=== PATIENT | female | born 1995 | race Two or more races ===

== ENCOUNTER 2019-06-26 23:20 | Emergency (ER) | payer SELFPAY ==
--- NOTE | 2019-06-27 00:51 | CR ---
Indication: Chest pain. Anxiety Technique: Chest 1 view Comparison: None Findings/Impression: Cardiovascular and mediastinum: Heart size and vasculature are normal in caliber and appearance. Mediastinum is within normal limits. Lungs and pleural space: An expiratory study. The medial apices are obscured by the patient`s chin. No consolidation or pleural effusions. No definite pneumothorax seen. Bones and soft tissues: No significant findings. Dictated by Max Staley MD @ 06/27/2019 12:50:34 AM Dictated by: Max Staley MD @ 06/27/2019 00:50:40 (Electronically Signed)
[2019-06-27 01:12] LABS: BLOOD UREA NITROGEN,BUN 10 mg/dL (7.0-18.0); CHLORIDE,CL 103 mmol/L (98-107); GLUCOSE RANDOM 139 mg/dL (74-106); POTASSIUM,K 3.7 mmol/L (3.5-5.1); SODIUM,NA 139 mmol/L (136-145)
[2019-06-27] MEDS ORDERED: Ketorolac 60 MG/2 ML SDV IM ONE (01:43)
--- NOTE | 2019-06-27 02:02 | CT ---
INDICATION: Abdominal and back pain. CT ABDOMEN AND PELVIS WITHOUT CONTRAST TECHNIQUE: Multidetector CT imaging was performed through the abdomen and pelvis without intravenous contrast administration. Coronal and sagittal reconstructions were generated. COMPARISON: None. FINDINGS: Lower chest: Lung bases are clear. Liver: Diffuse fatty infiltration of the liver. Gallbladder and bile ducts: No gallbladder wall thickening or calcified gallstones. No biliary dilation identified. Pancreas: Unremarkable. Spleen: Normal. Adrenals: No nodules or masses. Kidneys, ureters, and urinary bladder: Tiny nonobstructing stone in the lower pole of the left kidney. No ureteral stones or hydronephrosis. No bladder mass or definite wall thickening. Gastrointestinal tract: Normal caliber bowel without wall thickening. The appendix is normal. Vascular structures: Normal for age. Peritoneum: No free air, abscess, or significant free fluid. Lymph nodes: No pathologically enlarged nodes identified. Reproductive organs: No pelvic masses. Bones: Normal for age. IMPRESSION: 1. No acute abnormality identified. No cause for the patient`s symptoms is demonstrated. 2. Tiny nonobstructing left intrarenal stone. 3. Fatty infiltration of the liver. GIRMA ABBOTT MD [facility] [employer] Dictated by Keny Abbott MD @ 06/27/2019 2:00:57 AM Dictated by: Keny Abbott MD @ 06/27/2019 02:01:41 (Electronically Signed)
--- NOTE | 2019-06-27 02:19 | EDM.PDOC ---
ED HPI GENERAL MEDICAL PROBLEM - General Chief Complaint: Back Pain or Injury Stated Complaint: BACK PAIN Time Seen by Provider: 06/26/19 23:52 Source of Information: Reports: Patient History Limitations: Reports: No Limitations - History of Present Illness INITIAL COMMENTS - FREE TEXT/NARRATIVE: 23-year-old female's been having upper and lower back pain for the past 2 months. Patient states is got worse and she decided to come the emergency room Onset: Today Duration: Chronic, Getting Worse Location: Reports: Back Quality: Reports: Ache Severity: Moderate Improves with: Reports: None Worsens with: Reports: Breathing, Movement Associated Symptoms: Reports: No Other Symptoms back Pain Score (Numeric/FACES): 10 - Related Data Allergies Allergy/AdvReac Type Severity Reaction Status Date / Time No Known Allergies Allergy Verified 06/26/19 23:49 Home Meds: Home Meds Control 06/26/19 [History] Cyclobenzaprine [Flexeril] 10 mg PO BEDTIME #20 tab 06/27/19 [Rx] Past Medical History - Past Health History Medical/Surgical History: Denies Medical/Surgical History Musculoskeletal History: Reports: None - Past Surgical History Other Musculoskeletal Surgeries/Procedures:: left leg, tendon repair Social & Family History - Family History Family Medical History: Noncontributory - Tobacco Use Smoking Status *Q: Never Smoker Second Hand Smoke Exposure: No - Caffeine Use Caffeine Use: Reports: None - Recreational Drug Use Recreational Drug Use: No ED ROS GENERAL - Review of Systems Review Of Systems: See Below Constitutional: Reports: No Symptoms, Fever HEENT: Reports: No Symptoms Respiratory: Reports: No Symptoms Cardiovascular: Reports: No Symptoms Endocrine: Reports: No Symptoms GI/Abdominal: Reports: No Symptoms : Reports: No Symptoms Musculoskeletal: Reports: No Symptoms Skin: Reports: No Symptoms Neurological: Reports: No Symptoms Psychiatric: Reports: No Symptoms Hematologic/Lymphatic: Reports: No Symptoms Immunologic: Reports: No Symptoms ED EXAM,LOWER BACK PAIN/INJURY - Physical Exam Exam: See Below Exam Limited By: No Limitations General Appearance: Alert, WD/WN, No Apparent Distress Eye Exam: Bilateral Eye: Normal Fundi, Normal Inspection Ears: Normal External Exam, Normal Canal, Hearing Grossly Normal, Normal TMs Nose: Normal Inspection, Normal Mucosa, No Blood Throat/Mouth: Normal Inspection, Normal Lips, Normal Teeth, Normal Gums, Normal Oropharynx, Normal Voice, No Airway Compromise Head: Atraumatic, Normocephalic Neck: Normal Inspection, Supple, Non-Tender, Full Range of Motion Respiratory/Chest: No Respiratory Distress, Lungs Clear, Normal Breath Sounds, No Accessory Muscle Use, Chest Non-Tender Cardiovascular: Normal Peripheral Pulses, Regular Rate, Rhythm, No Edema, No Gallop, No JVD, No Murmur, No Rub GI/Abdominal: Normal Bowel Sounds, Soft, Non-Tender, No Organomegaly, No Distention, No Abnormal Bruit, No Mass (Female) Exam: Normal External Exam, Normal Speculum Exam, Normal Bimanual Exam Back Exam: Normal Inspection, Full Range of Motion, Muscle Spasm Extremities: Normal Inspection, Normal Range of Motion, Non-Tender, No Pedal Edema, Normal Capillary Refill Neurological: Alert, Normal Mood/Affect, Normal Dorsiflexion, CN II-XII Intact, Normal Plantar Flexion, Normal Gait, Normal Reflexes, No Motor/Sensory Deficits , Oriented x 3 Course - Vital Signs Text/Narrative:: The patien has been found to have a negative CT scan negative for kidney stones. Patient has just started her menstrual cycle therefore there are blood in urine. Patient will be discharged with muscle relaxers diagnosis of muscular spasms. Last Recorded V/S: Last Vital Signs Temp 96.6 F L 06/26/19 23:38 Pulse 84 06/26/19 23:38 Resp 17 06/26/19 23:38 BP 138/81 06/26/19 23:38 Pulse Ox 99 06/26/19 23:38 - Orders/Labs/Meds Labs: Laboratory Tests 06/26/19 06/26/19 06/27/19 Range/Units 23:41 23:41 00:30 WBC 8.28 (4.0-11.0) K/uL RBC 4.39 (4.30-5.90) M/uL Hgb 13.7 (12.0-16.0) g/dL Hct 39.5 (36.0-46.0) % MCV 90.0 (80.0-98.0) fL MCH 31.2 (27.0-32.0) pg MCHC 34.7 (31.0-37.0) g/dL RDW Std Deviation 42.0 (28.0-62.0) fl RDW Coeff of Merari 13 (11.0-15.0) % Plt Count 294 (150-400) K/uL MPV 8.70 (7.40-12.00) fL Neut % (Auto) 63.3 (48.0-80.0) % Lymph % (Auto) 30.6 (16.0-40.0) % [place] % (Auto) 5.7 (0.0-15.0) % Eos % (Auto) 0.2 (0.0-7.0) % Baso % (Auto) 0.2 (0.0-1.5) % Neut # (Auto) 5.2 (1.4-5.7) K/uL Lymph # (Auto) 2.5 H (0.6-2.4) K/uL [place] # (Auto) 0.5 (0.0-0.8) K/uL Eos # (Auto) 0.0 (0.0-0.7) K/uL Baso # (Auto) 0.0 (0.0-0.1) K/uL Sodium (136-145) mmol/L Potassium (3.5-5.1) mmol/L Chloride (98-107) mmol/L Carbon Dioxide (21.0-32.0) mmol/L BUN (7.0-18.0) mg/dL Creatinine (0.6-1.0) mg/dL Est Cr Clr Drug Dosing mL/min Estimated GFR (MDRD) ml/min Glucose (74-106) mg/dL Calcium (8.5-10.1) mg/dL Total Bilirubin (0.2-1.0) mg/dL AST (15-37) IU/L ALT (14-63) IU/L Alkaline Phosphatase (46-116) U/L Total Protein (6.4-8.2) g/dL Albumin (3.4-5.0) g/dL Globulin (2.6-4.0) g/dL Albumin/Globulin Ratio (0.9-1.6) Urine Color YELLOW Urine Appearance SLT CLOUDY Urine pH 5.5 (5.0-8.0) Ur Specific [place] >= 1.030 (1.001-1.035) Urine Protein TRACE H (NEGATIVE) mg/dL Urine Glucose (UA) NEGATIVE (NEGATIVE) mg/dL Urine Ketones NEGATIVE (NEGATIVE) mg/dL Urine Occult Blood LARGE H (NEGATIVE) Urine Nitrite NEGATIVE (NEGATIVE) Urine Bilirubin NEGATIVE (NEGATIVE) Urine Urobilinogen 0.2 (<2.0) EU/dL Ur Leukocyte Esterase NEGATIVE (NEGATIVE) Urine RBC 1-3 (0-2/HPF) Urine WBC 0-2 (0-5/HPF) Ur Epithelial Cells MODERATE (NONE-FEW) Calcium Oxalate Crystal FEW (NEGATIVE) Urine Bacteria FEW (NEGATIVE) Urine Mucus LIGHT (NONE-MOD) Urine HCG, Qual NEGATIVE (NEGATIVE) 06/27/19 Range/Units 00:30 WBC (4.0-11.0) K/uL RBC (4.30-5.90) M/uL Hgb (12.0-16.0) g/dL Hct (36.0-46.0) % MCV (80.0-98.0) fL MCH (27.0-32.0) pg MCHC (31.0-37.0) g/dL RDW Std Deviation (28.0-62.0) fl RDW Coeff of Merari (11.0-15.0) % Plt Count (150-400) K/uL MPV (7.40-12.00) fL Neut % (Auto) (48.0-80.0) % Lymph % (Auto) (16.0-40.0) % [place] % (Auto) (0.0-15.0) % Eos % (Auto) (0.0-7.0) % Baso % (Auto) (0.0-1.5) % Neut # (Auto) (1.4-5.7) K/uL Lymph # (Auto) (0.6-2.4) K/uL [place] # (Auto) (0.0-0.8) K/uL Eos # (Auto) (0.0-0.7) K/uL Baso # (Auto) (0.0-0.1) K/uL Sodium 139 (136-145) mmol/L Potassium 3.7 (3.5-5.1) mmol/L Chloride 103 (98-107) mmol/L Carbon Dioxide 25.0 (21.0-32.0) mmol/L BUN 10 (7.0-18.0) mg/dL Creatinine 0.8 (0.6-1.0) mg/dL Est Cr Clr Drug Dosing 92.83 mL/min Estimated GFR (MDRD) > 60.0 ml/min Glucose 139 H (74-106) mg/dL Calcium 8.4 L (8.5-10.1) mg/dL Total Bilirubin 0.4 (0.2-1.0) mg/dL AST 38 H (15-37) IU/L ALT 75 H (14-63) IU/L Alkaline Phosphatase 71 (46-116) U/L Total Protein 7.8 (6.4-8.2) g/dL Albumin 3.8 (3.4-5.0) g/dL Globulin 4.0 (2.6-4.0) g/dL Albumin/Globulin Ratio 0.9 (0.9-1.6) Urine Color Urine Appearance Urine pH (5.0-8.0) Ur Specific [place] (1.001-1.035) Urine Protein (NEGATIVE) mg/dL Urine Glucose (UA) (NEGATIVE) mg/dL Urine Ketones (NEGATIVE) mg/dL Urine Occult Blood (NEGATIVE) Urine Nitrite (NEGATIVE) Urine Bilirubin (NEGATIVE) Urine Urobilinogen (<2.0) EU/dL Ur Leukocyte Esterase (NEGATIVE) Urine RBC (0-2/HPF) Urine WBC (0-5/HPF) Ur Epithelial Cells (NONE-FEW) Calcium Oxalate Crystal (NEGATIVE) Urine Bacteria (NEGATIVE) Urine Mucus (NONE-MOD) Urine HCG, Qual (NEGATIVE) Meds: Medications Discontinued Medications Generic Name Dose Route Start Last Admin Trade Name Freq PRN Reason Stop Dose Admin Ketorolac Tromethamine 60 mg 06/27/19 01:43 06/27/19 01:54 Toradol IM 06/27/19 01:44 60 mg ONETIME ONE Administration Departure - Departure Time of Disposition: 02:20 Disposition: Home, Self-Care 01 Condition: Good Clinical Impression: Muscle ache of extremity - Discharge Information Prescriptions: Cyclobenzaprine [Flexeril] 10 mg PO BEDTIME #20 tab Instructions: Myofascial Pain Syndrome and Fibromyalgia Referrals: Eloy Arroyo MD [Primary Care Provider] - Forms: ED Department Discharge Additional Instructions: Patient is to take her medication as prescribed II. return for any problems Sepsis Event Note - Evaluation Sepsis Screening Result: No Definite Risk - Focused Exam Vital Signs: Vital Signs Temp Pulse Resp BP Pulse Ox 06/26/19 23:38 96.6 F L 84 17 138/81 99 Date Exam was Performed: 06/27/19 Time Exam was Performed: 02:37
[2019-06-27 03:06] VITALS: BP 124/70; PULSE 82
== END 2019-06-27 03:07 | disposition home or self-care (01) ==
LOC: MW.ED 23:20
DX: M79.18 Myalgia, other site (principal)
CPT/HCPCS: 36415; 71045; 74176; 80053; 81001; 81025; 85025; 96372; 99284; J1885

== ENCOUNTER 2020-05-20 12:36 | Emergency (ER) | payer SELFPAY ==
[2020-05-20 13:26] VITALS: BP 136/92; PULSE 83
--- NOTE | 2020-05-20 13:45 | EDM.PDOC ---
ED HPI GENERAL MEDICAL PROBLEM - General Chief Complaint: ENT Problem Stated Complaint: BUMP ON ROOF OF MOUTH Time Seen by Provider: 05/20/20 13:15 Source of Information: Reports: Patient History Limitations: Reports: No Limitations - History of Present Illness INITIAL COMMENTS - FREE TEXT/NARRATIVE: Patient is a 24-year-old female who presents today for swelling to the roof of her mouth. Patient states that this started last week and has been growing in size. Patient was also complaining of some throat pain currently as well. Patient states she is able to breathe okay does not have any fever chills or nausea or vomiting. Patient is a 34-year-old male who presents today for possible seizure. Oral/Mouth Pain Score (Numeric/FACES): 10 - Related Data Allergies Allergy/AdvReac Type Severity Reaction Status Date / Time No Known Allergies Allergy Verified 05/20/20 13:27 Home Meds: Home Meds Diphenhyd/Lidocaine/Nystatin [First-Bxn Mouthwash] 5 ml MM BID 7 Days #237 susp.recon 05/20/20 [Rx] clindamycin HCL [Clindamycin HCl] 300 mg PO Q8HR 7 Days #21 capsule 05/20/20 [Rx] Past Medical History - Past Health History Medical/Surgical History: Denies Medical/Surgical History Musculoskeletal History: Reports: None - Infectious Disease History Infectious Disease History: Reports: Chicken Pox - Past Surgical History Other Musculoskeletal Surgeries/Procedures:: left leg, tendon repair Social & Family History - Family History Family Medical History: No Pertinent Family History - Caffeine Use Caffeine Use: Reports: None - Recreational Drug Use Recreational Drug Use: No ED ROS ENT - Review of Systems Review Of Systems: See Below Constitutional: Reports: No Symptoms HEENT: Reports: No Symptoms Respiratory: Reports: No Symptoms Endocrine: Reports: No Symptoms GI/Abdominal: Reports: No Symptoms : Reports: No Symptoms Musculoskeletal: Reports: No Symptoms Skin: Reports: No Symptoms Neurological: Reports: No Symptoms Psychiatric: Reports: No Symptoms Hematologic/Lymphatic: Reports: No Symptoms Immunologic: Reports: No Symptoms ED EXAM, ENT - Physical Exam Exam: See Below Exam Limited By: No Limitations General Appearance: Alert, WD/WN, No Apparent Distress Mouth/Throat: Throat Pain, Other (possible abscese to roof of mouth) Respiratory/Chest: No Respiratory Distress, Lungs Clear ED ENT PROCEDURES - Additional/Other Procedure(s) Other (Free Text) Procedure(s): I&D Done to the patient preferred not had a small abscess. We used patient's lidocaine as well as 1% lidocaine injection. Use 11 blade. We made a small helen in the skin good amount of pus was able to come out. Patient relief and feels better. Course - Vital Signs Last Recorded V/S: Last Vital Signs Temp 98.9 F 05/20/20 13:10 Pulse 83 05/20/20 13:10 Resp BP 136/92 H 05/20/20 13:10 Pulse Ox 98 05/20/20 13:10 - Orders/Labs/Meds Orders: Active Orders 24 hr Category Date Time Status STREP A BY PCR [MOLEC] Stat Lab 05/20/20 14:02 Ordered Labs: Laboratory Tests 05/20/20 05/20/20 05/20/20 Range/Units 14:12 14:12 14:12 WBC 11.31 H (4.0-11.0) K/uL RBC 4.77 (4.30-5.90) M/uL Hgb 14.9 (12.0-16.0) g/dL Hct 44.2 (36.0-46.0) % MCV 92.7 (80.0-98.0) fL MCH 31.2 (27.0-32.0) pg MCHC 33.7 (31.0-37.0) g/dL RDW Std Deviation 44.3 (28.0-62.0) fl RDW Coeff of Merari 13 (11.0-15.0) % Plt Count 364 (150-400) K/uL MPV 9.10 (7.40-12.00) fL Neut % (Auto) 75.5 (48.0-80.0) % Lymph % (Auto) 18.1 (16.0-40.0) % [place] % (Auto) 5.8 (0.0-15.0) % Eos % (Auto) 0.4 (0.0-7.0) % Baso % (Auto) 0.2 (0.0-1.5) % Neut # (Auto) 8.5 H (1.4-5.7) K/uL Lymph # (Auto) 2.1 (0.6-2.4) K/uL [place] # (Auto) 0.7 (0.0-0.8) K/uL Eos # (Auto) 0.0 (0.0-0.7) K/uL Baso # (Auto) 0.0 (0.0-0.1) K/uL Nucleated RBC % 0.0 /100WBC Nucleated RBCs # 0 K/uL Sodium 138 (136-145) mmol/L Potassium 3.8 (3.5-5.1) mmol/L Chloride 103 (98-107) mmol/L Carbon Dioxide 26.0 (21.0-32.0) mmol/L BUN 8 (7.0-18.0) mg/dL Creatinine 0.8 (0.6-1.0) mg/dL Est Cr Clr Drug Dosing 92.02 mL/min Estimated GFR (MDRD) > 60.0 ml/min Glucose 105 (74-106) mg/dL Calcium 8.8 (8.5-10.1) mg/dL HCG, Qual NEGATIVE (NEG) Meds: Medications Discontinued Medications Generic Name Dose Route Start Last Admin Trade Name Urbanq PRN Reason Stop Dose Admin Dexamethasone 10 mg 05/20/20 14:38 05/20/20 14:51 Dexamethasone 10 Mg/Ml Sdv IM 05/20/20 14:39 10 mg ONETIME ONE Administration Lidocaine HCl 15 ml 05/20/20 14:37 05/20/20 14:51 Lidocaine 2% Viscous Solution 15 Ml Cup PO 05/20/20 14:38 15 ml ONETIME ONE Administration Lidocaine HCl 10 ml 05/20/20 14:38 05/20/20 14:56 Lidocaine 1% 10 Ml Mdv INJECT 05/20/20 14:39 Not Given ONETIME ONE Lidocaine HCl Confirm 05/20/20 14:48 05/20/20 14:57 Lidocaine 1% 5 Ml Sdv Administered 05/20/20 14:49 Not Given Dose 5 ml .ROUTE .STK-MED ONE Lidocaine HCl 5 ml 05/20/20 14:49 05/20/20 14:51 Lidocaine 1% 5 Ml Sdv INJECT 05/20/20 14:50 5 ml ONETIME ONE Administration Departure - Departure Time of Disposition: 15:12 Disposition: Home, Self-Care 01 Condition: Good Clinical Impression: Abscess of mouth - Discharge Information *PRESCRIPTION DRUG MONITORING PROGRAM REVIEWED*: Not Applicable *COPY OF PRESCRIPTION DRUG MONITORING REPORT IN PATIENT HECTOR: Not Applicable Prescriptions: clindamycin HCL [Clindamycin HCl] 300 mg PO Q8HR 7 Days #21 capsule Diphenhyd/Lidocaine/Nystatin [First-Bxn Mouthwash] 5 ml MM BID 7 Days #237 susp.recon Instructions: Dental Abscess Referrals: Eloy Arroyo MD [Primary Care Provider] - Forms: ED Department Discharge Additional Instructions: The following information is given to patients seen in the emergency department who are being discharged to home. This information is to outline your options for follow-up care. We provide all patients seen in our emergency department with a follow-up referral. The need for follow-up, as well as the timing and circumstances, are variable depending upon the specifics of your emergency department visit. If you don't have a primary care physician on staff, we will provide you with a referral. We always advise you to contact your personal physician following an emergency department visit to inform them of the circumstance of the visit and f or follow-up with them and/or the need for any referrals to a consulting specialist. The emergency department will also refer you to a specialist when appropriate. This referral assures that you have the opportunity for follow-up care with a specialist. All of these measure are taken in an effort to provide you with optimal care, which includes your follow-up. Under all circumstances we always encourage you to contact your private physician who remains a resource for coordinating your care. When calling for follow-up care, please make the office aware that this follow-up is from your recent emergency room visit. If for any reason you are refused follow-up, please contact the [facility] Emergency Department at and asked to speak to the emergency department charge nurse. Please follow up with your primary care physician. If you do not have a primary care physician, see below: [facility] [address] [place] [id number] [facility] [address] [place] [address] Please continue to follow-up with the dentist as planned. We made a small cut and reviewed now clinically amount of pus was able come out. We also sent home with some antibiotics and some mouthwash to use to help out with the effect in the mouth. If you have any other complaints concerns please return to ED. Sepsis Event Note (ED) - Evaluation Sepsis Screening Result: No Definite Risk - Focused Exam Vital Signs: Vital Signs Temp Pulse BP Pulse Ox 05/20/20 13:10 98.9 F 83 136/92 H 98 - My Orders Last 24 Hours: My Active Orders 05/20/20 14:02 STREP A BY PCR [MOLEC] Stat - Assessment/Plan Last 24 Hours: My Active Orders 05/20/20 14:02 STREP A BY PCR [MOLEC] Stat Plan: Patient is a 24-year-old female who presents today with a bump to the roof of her mouth that is fluctuant in size that could possibly be abscess. Patient also has some tonsillar swelling exudate could have strep throat as well will test for strep throat and likely provide a small helen to the possible abscess in the patient's mouth.
[2020-05-20 14:35] LABS: BLOOD UREA NITROGEN,BUN 8 mg/dL (7.0-18.0); CHLORIDE,CL 103 mmol/L (98-107); GLUCOSE RANDOM 105 mg/dL (74-106); POTASSIUM,K 3.8 mmol/L (3.5-5.1); SODIUM,NA 138 mmol/L (136-145)
[2020-05-20] MEDS ORDERED: Lidocaine 2% Viscous Solution 15 ML Cup PO ONE (14:37)
[2020-05-20] MEDS ORDERED: Lidocaine 1% 10 ML MDV INJECT ONE (14:38)
[2020-05-20] MEDS ORDERED: Dexamethasone 10 MG/ML SDV IM ONE (14:38)
== END 2020-05-20 15:47 | disposition home or self-care (01) ==
LOC: MW.ED 12:36
DX: K12.2 Cellulitis and abscess of mouth (principal)
CPT/HCPCS: 36415; 40800; 80048; 84703; 85025; 87651; 96372; 99283; A9270; J1100

== ENCOUNTER 2020-07-30 19:59 | Emergency (ER) | payer SELFPAY ==
--- NOTE | 2020-07-30 20:12 | EDM.PDOC ---
ED HPI GENERAL MEDICAL PROBLEM - General Chief Complaint: General Stated Complaint: DIZZINESS, BLURRED VISION Time Seen by Provider: 07/30/20 20:00 Source of Information: Reports: Patient History Limitations: Reports: No Limitations - Related Data Allergies Allergy/AdvReac Type Severity Reaction Status Date / Time No Known Allergies Allergy Verified 07/30/20 20:10 Home Meds: Home Meds . [No Known Home Meds] 07/30/20 [History] Past Medical History - Past Health History Medical/Surgical History: Denies Medical/Surgical History Musculoskeletal History: Reports: None - Infectious Disease History Infectious Disease History: Reports: Chicken Pox - Past Surgical History Other Musculoskeletal Surgeries/Procedures:: left leg, tendon repair Social & Family History - Family History Family Medical History: No Pertinent Family History - Caffeine Use Caffeine Use: Reports: None Departure - Discharge Information Referrals: Fanny Peres MD [Primary Care Provider] -
[2020-07-30] MEDS ORDERED: Ketorolac 30 MG/ML SDV IVPUSH ONE (20:17)
[2020-07-30] MEDS ORDERED: Sodium Chloride 0.9% 1,000 ML IV ONE (20:17)
--- NOTE | 2020-07-30 20:30 | EDM.PDOC ---
ED HPI GENERAL MEDICAL PROBLEM - General Chief Complaint: General Stated Complaint: DIZZINESS, BLURRED VISION Time Seen by Provider: 07/30/20 20:00 Source of Information: Reports: Patient History Limitations: Reports: No Limitations - History of Present Illness INITIAL COMMENTS - FREE TEXT/NARRATIVE: HISTORY AND PHYSICAL: History of present illness: Patient is a 25-year-old female who presents to the emergency room with complaints of dizziness, headache and generally feeling unwell. She states while at work she developed a mild headache had some blurred vision and felt diz zy. She left work to go "sleep it off" at home. She was face timing her mom who recommended she come to the emergency room for evaluation and have her blood sugar checked. Does not have any chronic health problems. Denies any alcohol or drug abuse. Current complaint of mild frontal headache. Does not describe this as the worst headache of her life. Vision is intact. Patient denies any fever, chills, syncope or near syncope. Denies any chest pain, back pain, shortness of breath or cough. Denies any abdominal pain, nausea, vomiting, diarrhea, constipation or dysuria. Has not noted any blood in urine or stool. Patient has been eating and drinking appropriately. Review of systems: As per history of present illness and below otherwise all systems reviewed and negative. Past medical history: As per history of present illness and as reviewed below otherwise noncontributory. Surgical history: As per history of present illness and as reviewed below otherwise noncontributory. Social history: See social history for further information Family history: As per history of present illness and as reviewed below otherwise noncontributory. Physical exam: General: Well developed and well nourished 21-year-old female. Alert and orientated x 3. Nontoxic in appearance and in no acute distress. Vital signs are stable and have been reviewed by me. Nursing notes were reviewed. HEENT: Atraumatic, normocephalic, pupils equal and reactive bilaterally, negative for conjunctival pallor or scleral icterus, mucous membranes moist, TMs normal bilaterally, throat clear, neck supple, nontender, trachea midline. No drooling or trismus noted. No meningeal signs. No hot potato voice noted. Lungs: Clear to auscultation bilaterally. No wheezes, rales, or rhonchi. Chest nontender. Normal work of breathing, no accessory muscles used. Heart: S1S2, regular rate and rhythm without overt murmur, gallops, or rubs. No JVD. No peripheral edema Abdomen: Soft, nondistended, nontender. Normoactive bowel sounds. Negative for masses or costovertebral tenderness. Skin: Intact, warm, dry. No lesions or rashes noted. Hematologic: No petechiae or purpra. Mucosa appropriate color and normal nail bed color and refill. Extremities: Atraumatic, moves all extremities per self without difficulty or deficits, negative for cords or calf pain. Neurovascular unremarkable. Neuro: Awake, alert, oriented. Cranial nerves II through XII unremarkable. Cerebellum unremarkable. Motor and sensory unremarkable throughout. Exam nonfocal. Psychiatric: Mood and affect are appropriate. Normal thought process. Answering questions appropriately. Notes: *This patient was seen and evaluated during the 2019 SARS-CoV-2 novel coronavirus pandemic period. Community viral transmission is ongoing at time of this encounter and the emergency department is operating under pandemic response procedures. Patient is a 25-year-old female who presents to the emergency room with complaints of headache, blurred vision and dizziness. She states this lasted about 30 minutes but decided to go home to "sleep it off". Physical exam is unremarkable. Vital signs are stable. She is agreeable to basic lab work, IV fluid and Toradol. Patient states she does feel improved after the IV fluids and medication. Her lab work shows a UTI, culture has been added. I have talked with the patient about today's findings, in addition to providing specific details for plan of care. She states she did have some suprapubic pain a few days ago, felt that this had improved. She also mentions she was treated for chlamydia and tric homonas about a month ago, did follow-up and had no posttreatment issues. Reassessment at the time of disposition demonstrates that the patient is in no acute distress. The patient is stable for discharge, counseling was provided and we discussed in great detail signs and symptoms that would prompt them to return to the Emergency Department. Medication, follow up and supportive care measures were reviewed and discussed. Voices understanding and is agreeable to plan of care. Denies any further questions or concerns at this time. Diagnostics: CBC, CMP, UA, urine , orthostatic vital signs Therapeutics: IV fluid, Toradol, Macrobid Prescription: Macrobid Impression: UTI Headache, resolved Plan: 1. You were evaluated today on an emergent basis. Your labs show a bladder infection. Please take medication as directed. 2. You can alternate Tylenol and ibuprofen as needed for pain and fever management. 3. We encourage you to follow up with your primary care provider and/or kee mmended specialist in the next few days for re-evaluation and further care/management. 4. If your symptoms should worsen, new symptoms develop or any of the signs and symptoms we discussed should arise please return to the emergency room or call 911 (if needed). Definitive disposition and diagnosis as appropriate pending reevaluation and review of above. headache Pain Score (Numeric/FACES): 3 - Related Data Allergies Allergy/AdvReac Type Severity Reaction Status Date / Time No Known Allergies Allergy Verified 07/30/20 20:10 Home Meds: Home Meds Nitrofurantoin Monohyd/M-Cryst [Macrobid 100 mg Capsule] 100 mg PO BID 5 Days #10 capsule 07/30/20 [Rx] Past Medical History - Past Health History Medical/Surgical History: Denies Medical/Surgical History Musculoskeletal History: Reports: None - Infectious Disease History Infectious Disease History: Reports: Chicken Pox - Past Surgical History Other Musculoskeletal Surgeries/Procedures:: left leg, tendon repair Social & Family History - Family History Family Medical History: No Pertinent Family History - Caffeine Use Caffeine Use: Reports: None ED ROS GENERAL - Review of Systems Review Of Systems: Comprehensive ROS is negative, except as noted in HPI. ED EXAM, GENERAL - Physical Exam Exam: See Below (See dictation) Course - Vital Signs Last Recorded V/S: Last Vital Signs Temp 97.1 F 07/30/20 20:10 Pulse 78 07/30/20 20:10 Resp 18 07/30/20 20:10 BP 122/74 07/30/20 20:10 Pulse Ox 97 07/30/20 20:10 Orthostatic Blood Pressure [ 114/72 Standing] Orthostatic Blood Pressure [ 113/76 Sitting] Orthostatic Blood Pressure [ 123/78 Supine] - Orders/Labs/Meds Orders: Active Orders 24 hr Category Date Time Status Orthostatic Vital Signs [RC] ASDIRECTED Care 07/30/20 20:18 Active CULTURE URINE [MREF] Stat Lab 07/30/20 20:50 Received Labs: Laboratory Tests 06/21/21 06/21/21 06/21/21 Range/Units 20:25 20:25 20:50 WBC 8.91 (4.0-11.0) K/uL RBC 4.62 (4.30-5.90) M/uL Hgb 14.8 (12.0-16.0) g/dL Hct 42.1 (36.0-46.0) % MCV 91.1 (80.0-98.0) fL MCH 32.0 (27.0-32.0) pg MCHC 35.2 (31.0-37.0) g/dL RDW Std Deviation 42.9 (28.0-62.0) fl RDW Coeff of Merari 13 (11.0-15.0) % Plt Count 352 (150-400) K/uL MPV 10.00 (7.40-12.00) fL Neut % (Auto) 60.3 (48.0-80.0) % Lymph % (Auto) 30.2 (16.0-40.0) % Bowie % (Auto) 8.3 (0.0-15.0) % Eos % (Auto) 0.9 (0.0-7.0) % Baso % (Auto) 0.3 (0.0-1.5) % Neut # (Auto) 5.4 (1.4-5.7) K/uL Lymph # (Auto) 2.7 H (0.6-2.4) K/uL Bowie # (Auto) 0.7 (0.0-0.8) K/uL Eos # (Auto) 0.1 (0.0-0.7) K/uL Baso # (Auto) 0.0 (0.0-0.1) K/uL Nucleated RBC % 0.0 /100WBC Nucleated RBCs # 0 K/uL Sodium 139 (136-145) mmol/L Potassium 3.6 (3.5-5.1) mmol/L Chloride 103 (98-107) mmol/L Carbon Dioxide 25.8 (21.0-32.0) mmol/L BUN 10 (7.0-18.0) mg/dL Creatinine 0.7 (0.6-1.0) mg/dL Est Cr Clr Drug Dosing 104.24 mL/min Estimated GFR (MDRD) > 60.0 ml/min Glucose 102 (74-106) mg/dL Calcium 8.6 (8.5-10.1) mg/dL Total Bilirubin 0.5 (0.2-1.0) mg/dL AST 30 (15-37) IU/L ALT 66 H (14-63) IU/L Alkaline Phosphatase 102 (46-116) U/L Total Protein 8.0 (6.4-8.2) g/dL Albumin 3.8 (3.4-5.0) g/dL Globulin 4.2 H (2.6-4.0) g/dL Albumin/Globulin Ratio 0.9 (0.9-1.6) Urine Color YELLOW Urine Appearance SLT CLOUDY Urine pH 6.0 (5.0-8.0) Ur Specific Sheridan 1.020 (1.001-1.035) Urine Protein NEGATIVE (NEGATIVE) mg/dL Urine Glucose (UA) NEGATIVE (NEGATIVE) mg/dL Urine Ketones NEGATIVE (NEGATIVE) mg/dL Urine Occult Blood NEGATIVE (NEGATIVE) Urine Nitrite NEGATIVE (NEGATIVE) Urine Bilirubin NEGATIVE (NEGATIVE) Urine Urobilinogen 0.2 (<2.0) EU/dL Ur Leukocyte Esterase SMALL H (NEGATIVE) Urine RBC 0-2 (0-2/HPF) Urine WBC 3-6 (0-5/HPF) Ur Epithelial Cells MODERATE (NONE-FEW) Amorphous Sediment LIGHT (NEGATIVE) Urine Bacteria 3+ H (NEGATIVE) Urine HCG, Qual (NEGATIVE) 07/30/20 Range/Units 20:50 WBC (4.0-11.0) K/uL RBC (4.30-5.90) M/uL Hgb (12.0-16.0) g/dL Hct (36.0-46.0) % MCV (80.0-98.0) fL MCH (27.0-32.0) pg MCHC (31.0-37.0) g/dL RDW Std Deviation (28.0-62.0) fl RDW Coeff of Merari (11.0-15.0) % Plt Count (150-400) K/uL MPV (7.40-12.00) fL Neut % (Auto) (48.0-80.0) % Lymph % (Auto) (16.0-40.0) % Bowie % (Auto) (0.0-15.0) % Eos % (Auto) (0.0-7.0) % Baso % (Auto) (0.0-1.5) % Neut # (Auto) (1.4-5.7) K/uL Lymph # (Auto) (0.6-2.4) K/uL Bowie # (Auto) (0.0-0.8) K/uL Eos # (Auto) (0.0-0.7) K/uL Baso # (Auto) (0.0-0.1) K/uL Nucleated RBC % /100WBC Nucleated RBCs # K/uL Sodium (136-145) mmol/L Potassium (3.5-5.1) mmol/L Chloride (98-107) mmol/L Carbon Dioxide (21.0-32.0) mmol/L BUN (7.0-18.0) mg/dL Creatinine (0.6-1.0) mg/dL Est Cr Clr Drug Dosing mL/min Estimated GFR (MDRD) ml/min Glucose (74-106) mg/dL Calcium (8.5-10.1) mg/dL Total Bilirubin (0.2-1.0) mg/dL AST (15-37) IU/L ALT (14-63) IU/L Alkaline Phosphatase (46-116) U/L Total Protein (6.4-8.2) g/dL Albumin (3.4-5.0) g/dL Globulin (2.6-4.0) g/dL Albumin/Globulin Ratio (0.9-1.6) Urine Color Urine Appearance Urine pH (5.0-8.0) Ur Specific Sheridan (1.001-1.035) Urine Protein (NEGATIVE) mg/dL Urine Glucose (UA) (NEGATIVE) mg/dL Urine Ketones (NEGATIVE) mg/dL Urine Occult Blood (NEGATIVE) Urine Nitrite (NEGATIVE) Urine Bilirubin (NEGATIVE) Urine Urobilinogen (<2.0) EU/dL Ur Leukocyte Esterase (NEGATIVE) Urine RBC (0-2/HPF) Urine WBC (0-5/HPF) Ur Epithelial Cells (NONE-FEW) Amorphous Sediment (NEGATIVE) Urine Bacteria (NEGATIVE) Urine HCG, Qual NEGATIVE (NEGATIVE) Meds: Medications Discontinued Medications Generic Name Dose Route Start Last Admin Trade Name Freq PRN Reason Stop Dose Admin Sodium Chloride 1,000 mls @ 999 mls/hr 06/21/21 20:17 07/30/20 20:33 Normal Saline IV 07/30/20 21:17 999 mls/hr STAT ONE Administration Ketorolac Tromethamine 30 mg 07/30/20 20:17 07/30/20 20:34 Ketorolac 30 Mg/Ml Sdv IVPUSH 07/30/20 20:18 30 mg ONETIME ONE Administration Nitrofurantoin Macrocrystals 100 mg 07/30/20 21:28 Nitrofurantoin Monohydrate/Macrocrystalline 100 Mg Cap PO 07/30/20 21:29 ONETIME ONE Departure - Departure Time of Disposition: 21:30 Disposition: Home, Self-Care 01 Clinical Impression: UTI, Urinary tract infectious disease Headache Qualifiers: Headache type: unspecified Headache chronicity pattern: acute headache Intractability: not intractable Qualified Code(s): R51.9 - Headache, unspecified - Discharge Information Prescriptions: Nitrofurantoin Monohyd/M-Cryst [Macrobid 100 mg Capsule] 100 mg PO BID 5 Days #10 capsule Instructions: Urinary Tract Infection, Adult, [id number] Referrals: Fanny Peres MD [Primary Care Provider] - Forms: ED Department Discharge Additional Instructions: The following information is given to patients seen in the emergency department who are being discharged to home. This information is to outline your options for follow-up care. We provide all patients seen in our emergency department w ith a follow-up referral. The need for follow-up, as well as the timing and circumstances, are variable depending upon the specifics of your emergency department visit. If you don't have a primary care physician on staff, we will provide you with a referral. We always advise you to contact your personal physician following an emergency department visit to inform them of the circumstance of the visit and for follow-up with them and/or the need for any referrals to a consulting specialist. The emergency department will also refer you to a specialist when appropriate. This referral assures that you have the opportunity for follow-up care with a specialist. All of these measure are taken in an effort to provide you with optimal care, which includes your follow-up. Under all circumstances we always encourage you to contact your private physician who remains a resource for coordinating your care. When calling for follow-up care, please make the office aware that this follow-up is from your recent emergency room visit. If for any reason you are refused follow-up, please contact the [facility] Emergency Department at and asked to speak to the emergency department charge nurse. [facility] [address] [place] [address] [facility] [address] [place] [id number] Thank you for choosing the [facility] emergency department in [facility] for your medical needs today. It was a pleasure caring for you. Today you were seen in the emergency department for dizziness and headache. 1. You were evaluated today on an emergent basis. Your labs show a bladder infection. Please take medication as directed. 2. You can alternate Tylenol and ibuprofen as needed for pain and fever management. 3. We encourage you to follow up with your primary care provider and/or recommended specialist in the next few days for re-evaluation and further care/management. 4. If your symptoms should worsen, new symptoms develop or any of the signs and symptoms we discussed should arise please return to the emergency room or call 911 (if needed). Sepsis Event Note (ED) - Evaluation Sepsis Screening Result: No Definite Risk - Focused Exam Vital Signs: Vital Signs Temp Pulse Resp BP Pulse Ox 07/30/20 20:10 97.1 F 78 18 122/74 97 - My Orders Last 24 Hours: My Active Orders 07/30/20 20:18 Orthostatic Vital Signs [RC] ASDIRECTED 07/30/20 20:50 CULTURE URINE [MREF] Stat - Assessment/Plan Last 24 Hours: My Active Orders 07/30/20 20:18 Orthostatic Vital Signs [RC] ASDIRECTED 07/30/20 20:50 CULTURE URINE [MREF] Stat
[2020-07-30 20:54] LABS: BLOOD UREA NITROGEN,BUN 10 mg/dL (7.0-18.0); CARBON DIOXIDE,CO2 25.8 mmol/L (21.0-32.0); CHLORIDE,CL 103 mmol/L (98-107); GLUCOSE RANDOM 102 mg/dL (74-106); POTASSIUM,K 3.6 mmol/L (3.5-5.1); SODIUM,NA 139 mmol/L (136-145)
[2020-07-30] MEDS ORDERED: Nitrofurantoin Monohydrate/Macrocrystalline 100 MG Cap PO ONE (21:28)
[2020-07-30 21:51] VITALS: BP 121/79; PULSE 71
== END 2020-07-30 21:45 | disposition home or self-care (01) ==
LOC: MW.ED 19:59
DX: N39.0 Urinary tract infection, site not specified (principal)
CPT/HCPCS: 36415; 80053; 81001; 81025; 85025; 87086; 96374; 99284; A9270; J1885; J7030; 99283

== ENCOUNTER 2021-04-05 21:14 | Emergency (ER) | payer SELFPAY ==
[2021-04-05 22:17] VITALS: PULSE 98
[2021-04-05] MEDS ORDERED: Acetaminophen/oxyCODONE 325-5 MG Tab PO ONE (22:30)
[2021-04-05] MEDS ORDERED: Amoxicillin/Clavulanate K 875-125 MG Tab PO ONE (22:30)
[2021-04-05 22:59] VITALS: BP 132/79
== END 2021-04-05 23:01 | disposition home or self-care (01) ==
LOC: MW.ED 21:14
DX: T85.848A Pain due to other internal prosthetic devices, implants and grafts, initial encounter (principal); K04.7 Periapical abscess without sinus
CPT/HCPCS: 99282; A9270